=== PATIENT | female | born 1990 | race African-American/Black ===

== ENCOUNTER 2016-12-30 09:02 | Emergency (ER) | payer SELFPAY ==
[~2016-12-30] VITALS: Ht 160 cm; Wt 77.1 kg
[~2016-12-30 09:02] MED LIST: CEPH-264 PO; CIPR500T94 PO; METR500T PO; METR500T8 PO; OXYC-323 PO; PNV1TABL25 PO
[2016-12-30 09:34] VITALS: BP 124/60
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
[2016-12-30 09:50] LABS: BILIRUBIN,URINE NEGATIVE (NEG); GLUCOSE,URINE NEGATIVE (NEG); NITRITE,URINE NEGATIVE (NEG); PROTEIN,URINE NEGATIVE (NEG-TRACE); UROBILINOGEN,URINE 0.2 mg/dL (0.2 mg/dL)
[2016-12-30 10:04] LABS: BACTERIA,URINE MANY /HPF (0-FEW); RBC,URINE RARE /HPF (0-2)
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
[2016-12-30] MEDS ORDERED: IBUP-1060 PO (10:56)
[2016-12-30] MEDS ORDERED: CYCL5TAB PO (10:56)
[2016-12-30] MEDS ORDERED: traMADol 50 MG TABLET PO ONE (11:00)
[2016-12-30] MEDS ORDERED: KETOROLAC 60 MG/2 ML INJ. IM ONE (11:15)
== END 2016-12-30 11:42 | disposition home or self-care (01) ==
LOC: ER 09:02
DX: S16.1XXA Strain of muscle, fascia and tendon at neck level, initial encounter (principal); S33.5XXA Sprain of ligaments of lumbar spine, initial encounter; R07.81 Pleurodynia; Y08.89XA Assault by other specified means, initial encounter; Y93.89 Activity, other specified; Y92.89 Other specified places as the place of occurrence of the external cause; Y99.8 Other external cause status
CPT/HCPCS: 70450; 71101; 72100; 72125; 81001; 81025; 96372; 99285; J1885

== ENCOUNTER 2017-01-03 23:18 | Emergency (ER) | payer SELFPAY ==
[~2017-01-03] VITALS: Ht 160 cm; Wt 68.0 kg
[~2017-01-03 23:18] MED LIST changes: +CYCL5TAB PO; +IBUP-1060 PO
--- NOTE | 2017-01-03 23:38 | PHYS DOC ---
Past Medical History Past Medical History: Other Additional Past Medical Histor: HEADACHES Past Surgical History: No Surgical History Alcohol Use: Heavy Drug Use: None Adult General Chief Complaint Chief Complaint: HEADACHE HPI HPI Patient is a 26 year old female who presents with complaints of anxiety as well as headache. Headache is described as similar to others that are not frequent. No other people who live with her we headaches. No fevers, no head trauma, no rashes, no recent illnesses. Patient states that she has not taking anything at all prior to coming to the ED for her headache. Patient does not describe any vomiting or focal weakness or numbness. She does state that she felt dizzy. Patient ambulates in the ED with normal gait and without assistance. Review of Systems Review of Systems Constitutional: Denies fever or chills [] Eyes: Denies change in visual acuity, redness, or eye pain [] HENT: Denies nasal congestion or sore throat [] Respiratory: Denies cough or shortness of breath [] Cardiovascular: No chest pain GI: Denies abdominal pain, Musculoskeletal: Denies back pain or joint pain [] Integument: Denies rash or skin lesions [] Neurologic: Denies focal weakness or sensory changes . Yes to headache, just the dizziness Current Medications Current Medications Current Medications Medications (Trade) Dose Ordered Sig/[facility] Start Time Stop Time Status Last Admin Dose Admin Acetaminophen (Tylenol) 1,000 mg 1X ONCE 01/04/17 00:00 01/04/17 00:01 DC 01/03/17 23:45 1,000 MG Diphenhydramine HCl (Benadryl) 25 mg 1X ONCE 01/04/17 01:00 01/04/17 01:01 01/04/17 00:42 25 MG Ketorolac Tromethamine (Toradol Im) 60 mg 1X ONCE 01/04/17 00:00 01/04/17 00:01 DC 01/03/17 23:45 60 MG Prochlorperazine Edisylate (Compazine) 10 mg 1X ONCE 01/04/17 01:00 01/04/17 01:01 01/04/17 00:42 10 MG Allergies Allergies Allergies Coded Allergies Type Severity Reaction Last Updated Verified No Known Drug Allergies 11/19/15 No Physical Exam Physical Exam Constitutional: Well developed, well nourished, mild distress, non-toxic appearance. [] HENT: Normocephalic, atraumatic, oropharynx moist, no oral exudates, nose normal. [] Eyes: EOMI, conjunctiva normal, no discharge. [] Neck: Normal range of motion, no tenderness, supple, no stridor. No LAD, no meningeal signs Cardiovascular:Heart rate regular rhythm, no murmur, equal pulses, normal perfusion Lungs & Thorax: No tachypnea Abdomen: No distention Skin: Warm, dry, no erythema, no rash. [] Back: No tenderness, no CVA tenderness. No step-offs Extremities: No tenderness, no cyanosis, , ROM intact, no edema. [] Neurologic: Alert and oriented X 3, normal motor function, strength is equal and symmetric throughout, no pronator drift, normal gross sensory function, no focal deficits noted. Cranial nerves III-12 within normal limits. Patient ambulates with normal gait and without assistance Psychologic: Affect normal, judgement normal, mood normal. [] Current Patient Data Vital Signs Vital Signs Date Time Temp Pulse Resp B/P (MAP) Pulse Ox O2 Delivery O2 Flow Rate FiO2 01/03/17 23:24 98.5 79 16 144/82 (102) 98 Room Air 98.5 Lab Values Laboratory Tests Test 01/03/17 23:28 POC Urine HCG, Qualitative Hcg negative (Negative) EKG EKG 2342 61, SR, no stemi[] Radiology/Procedures Radiology/Procedures [] Course & Med Decision Making Course & Med Decision Making Pertinent Labs and Imaging studies reviewed. (See chart for details) 0048 pt states she feels improved and wants to go home. [] Dragon Disclaimer Dragon Disclaimer This electronic medical record was generated, in whole or in part, using a voice recognition dictation system. Departure Departure Impression: Primary Impression: Head ache Disposition: HOME, SELF-CARE Condition: IMPROVED Referrals: NO PCP (PCP) Patient Instructions: General Headache Without Cause Additional Instructions: Please follow with your PCP or one of the clinics in the list provided to you for recheck and reevaluation in 1 day. If your symptoms return or new concerning symptoms (difficulty walking, vomiting, localized weakness are examples )develop please return to the ED immediately for further evaluation. Scripts Naproxen (NAPROXEN) 375 Mg Tablet 1 TAB PO TID for 7 Days, #21 TAB 5 Refills Prov: Francis NORRIS MD 01/04/17 Francis NORRIS MD Jan 03, 2017 23:38
[2017-01-04] MEDS ORDERED: KETOROLAC 60 MG/2 ML INJ. IM ONE
[2017-01-04] MEDS ORDERED: ACETAMINOPHEN 500 MG TABLET PO ONE
[2017-01-04] MEDS ORDERED: NAPR-695 PO (00:50)
[2017-01-04 01:00] VITALS: BP 125/85
[2017-01-04] MEDS ORDERED: PROCHLORPERAZINE 10 MG/2 ML VIAL. IV ONE (01:00)
[2017-01-04] MEDS ORDERED: diphenhydrAMINE 50 MG/ML VIAL IVP ONE (01:00)
--- NOTE | 2017-01-04 06:22 | EKG ---
[facility] [address] [place] [address] Test Date: 2017-01-03 Test Time: 23:36:11 Pat Name: BRYON HENLEY Department: Room: Gender: F [employer]ician: : 1990 Requested By: Francis NORRIS Order Number: [id number] Reading MD: Measurements Intervals [place] Rate: 61 P: 49 SC: 118 QRS: 73 QRSD: 78 T: 47 QT: 432 QTc: 436 Interpretive Statements SINUS RHYTHM NORMAL ECG RI6.01 Unconfirmed report No previous ECG available for comparison
== END 2017-01-04 01:00 | disposition home or self-care (01) ==
LOC: ER 23:18
DX: R51 Headache (principal); F41.9 Anxiety disorder, unspecified; F10.20 Alcohol dependence, uncomplicated
CPT/HCPCS: 81025; 93005; 96372; 96374; 96375; 99284; J0780; J1200; J1885

== ENCOUNTER 2017-03-03 14:15 | Emergency (ER) | payer SELFPAY ==
[~2017-03-03] VITALS: Ht 160 cm; Wt 72.6 kg
[~2017-03-03 14:15] MED LIST changes: +NAPR-695 PO
[2017-03-03 14:17] VITALS: BP 124/56
[2017-03-03] MEDS ORDERED: IV NORMAL SALINE 1000ML BAG 1,000 ML IV SCH (15:37)
--- NOTE | 2017-03-03 16:33 | RAD ---
Early OB ultrasound History: , vaginal bleeding, LMP 01/06/2017 Comparison: OB ultrasound dated 11/17/2015 Technique: Realtime grayscale and duplex Doppler examination of the pelvis was performed transabdominally and transvaginally. Findings: The uterus measures 8 x 5 x 5 cm. The endometrial stripe measures 0.8 cm. No IUP detected. No gestational sac or yolk sac seen. Small amount of complex fluid seen in the lower uterine segment. No increased blood flow by color Doppler ultrasound. The right ovary measures 3.1 x 1.5 x 1.3 cm with several physiologic follicles. The left ovary measures 2.9 x 1.8 x 1.4 cm also with several physiologic follicles. Normal bilateral ovarian vascular flow. Impression: 1. No IUP identified. Recommend correlation with serial lab values and obstetrics consultation. Short-term follow-up sonography can be obtained. 2. Small amount of complex fluid seen in the lower uterine segment may relate to blood products given the history of vaginal bleeding. Findings also could relate to retained products of conception. No increased blood flow seen by color Doppler ultrasound. Again, short-term follow-up ultrasound could be performed.
[2017-03-03 17:20] LABS: BACTERIA,URINE MANY /HPF (0-FEW); BILIRUBIN,URINE NEGATIVE (NEG); GLUCOSE,URINE NEGATIVE (NEG); NITRITE,URINE NEGATIVE (NEG); PROTEIN,URINE NEGATIVE (NEG-TRACE); RBC,URINE 0 /HPF (0-2); SQUAMOUS EPITHELIAL CELL,UR MOD /LPF; WBC,URINE >40 /HPF (0-4)
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
== END 2017-03-03 16:24 | disposition left against medical advice (07) ==
LOC: ER 14:15
DX: O46.91 Antepartum hemorrhage, unspecified, first trimester (principal); Z3A.00 Weeks of gestation of pregnancy not specified; Z53.21 Procedure and treatment not carried out due to patient leaving prior to being seen by health care provider
CPT/HCPCS: 76801; 76817; 81001; 81025; 87086; 87186; 99281; 99285-25

== ENCOUNTER 2017-03-05 14:10 | Emergency (ER) | payer SELFPAY ==
[~2017-03-05] VITALS: Ht 160 cm; Wt 71.4 kg
[2017-03-05] MEDS ORDERED: fentaNYL PF VIAL 100 MCG/2 ML VIAL IV PRN (15:30)
[2017-03-05] MEDS ORDERED: IV NORMAL SALINE 1000ML BAG 1,000 ML IV ONE (15:30)
[2017-03-05] MEDS ORDERED: ONDANSETRON PF 4 MG/2 ML VIAL. IV ONE (15:30)
[2017-03-05 15:38] LABS: BILIRUBIN,URINE NEGATIVE (NEG); GLUCOSE,URINE NEGATIVE (NEG); NITRITE,URINE POSITIVE (NEG); PROTEIN,URINE NEGATIVE (NEG-TRACE)
[2017-03-05 15:48] LABS: BACTERIA,URINE MANY /HPF (0-FEW); SQUAMOUS EPITHELIAL CELL,UR MOD /LPF
[2017-03-05 15:58] LABS: BASO % 1 % (0-3); EOS % 7 % (0-3); HEMATOCRIT 40.6 % (36.0-47.0); HEMOGLOBIN 13.3 g/dL (12.0-15.5); LYMPH # 1.9 x10^3/uL (1.0-4.8); LYMPH % 33 % (24-48); MEAN CORPUSCULAR HEMOGLOBIN 30 pg (25-35); MEAN CORPUSCULAR HGB CONC 33 g/dL (31-37); MEAN CORPUSCULAR VOLUME 91 fL (79-100); MONO % 8 % (0-9); NEUT % 52 % (31-73); PLATELET COUNT 262 x10^3/uL (140-400); RED BLOOD COUNT 4.49 x10^6/uL (3.50-5.40); RED CELL DISTRIBUTION WIDTH 13.9 % (11.5-14.5); WHITE BLOOD COUNT 5.8 x10^3/uL (4.0-11.0)
--- NOTE | 2017-03-05 16:10 | ED.ADGEN ---
Past Medical History Past Medical History: Ectopic , Other Additional Past Medical Histor: HEADACHES Past Surgical History: No Surgical History Additional Information: 0.25 PPD Alcohol Use: Heavy Drug Use: None Adult General Chief Complaint Chief Complaint: VAGINAL BLEEDING HPI HPI Patient is a 27 year old woman, , history of an ectopic , with a positive test and her last menstrual cycle about 10 weeks ago, who presents emergency department with complaint of vaginal bleeding for the past 5 days. Patient states she is passing some clots, states that she is using about 6 pads a day, though not soaking through them. She states that she isn't having bleeding for the past 5 days with cramping for the past 3. States some lower back pain, no nausea, vomiting, no injuries, no discharge or drainage from the vagina, no urinary complaints, no concerns for STI exposures. She denies other medical problems. She does smoke cigarettes daily, denies any drugs or alcohol. Patient presents to the emergency department on 03/03, did have an ultrasound performed, left without being evaluated. States she is currently having cramping. Denies any injuries, any similar complaints. Review of Systems Review of Systems Constitutional: Denies fever or chills. [] Eyes: Denies change in visual acuity. [] HENT: Denies nasal congestion or sore throat. [] Respiratory: Denies cough or shortness of breath. [] Cardiovascular: Denies chest pain or edema. [] GI: Lower abdominal cramping, no nausea, vomiting, bloody stools or diarrhea. Associated with vaginal bleeding. : Denies dysuria. [] Musculoskeletal: Denies back pain or joint pain. [] Integument: Denies rash. [] Neurologic: Denies headache, focal weakness or sensory changes. [] Endocrine: Denies polyuria or polydipsia. [] Lymphatic: Denies swollen glands. [] Psychiatric: Denies depression or anxiety. [] Current Medications Current Medications Current Medications Medications (Trade) Dose Ordered Sig/Mckayla Start Time Stop Time Status Last Admin Dose Admin Acetaminophen/ Hydrocodone Bitart (Lortab 5/325) 1 tab 1X ONCE 03/05/17 16:45 03/05/17 16:46 DC 03/05/17 17:03 1 TAB Cephalexin HCl (Keflex) 500 mg 1X ONCE 03/05/17 16:45 03/05/17 16:46 DC 03/05/17 17:02 500 MG Fentanyl Citrate (Fentanyl 2ml Vial) 25 mcg PRN Q15MIN PRN 03/05/17 15:30 03/05/17 17:11 DC 03/05/17 16:06 25 MCG Metronidazole (Flagyl) 500 mg 1X ONCE 03/05/17 16:45 03/05/17 16:46 DC 03/05/17 17:02 500 MG Ondansetron HCl (Zofran) 4 mg 1X ONCE 03/05/17 15:30 03/05/17 15:32 DC 03/05/17 16:05 4 MG Sodium Chloride 1,000 ml @ 1,000 mls/hr 1X ONCE 03/05/17 15:30 03/05/17 16:29 DC 03/05/17 16:05 1,000 MLS/HR Allergies Allergies Allergies Coded Allergies Type Severity Reaction Last Updated Verified No Known Drug Allergies 11/19/15 No Physical Exam Physical Exam Constitutional: Well developed, well nourished, no acute distress, non-toxic appearance. [] HENT: Normocephalic, atraumatic, bilateral external ears normal, oropharynx moist, no oral exudates, nose normal. [] Eyes: PERRLA, EOMI, conjunctiva normal, no discharge. [] Neck: Normal range of motion, no tenderness, supple, no stridor. [] Cardiovascular:Heart rate regular rhythm, no murmur, S1, S2, no rubs or gallops. [] Lungs & Thorax: Bilateral breath sounds clear to auscultation, no wheezing, rhonchi, rales. No chest wall crepitus or tenderness. [] Abdomen: Bowel sounds normal, soft, mild tenderness to palpation in the suprapubic and pelvic region, no masses, no pulsatile masses. [] Skin: Warm, dry, no erythema, no rash. [] Back: No tenderness, no CVA tenderness. [] Extremities: No tenderness, no cyanosis, no clubbing, ROM intact, no edema. Negative Homans sign.[] Neurologic: Alert and oriented X 3, normal motor function, normal sensory function, no focal deficits noted. [] Psychologic: Affect normal, judgement normal, mood normal. [] Pelvic examination: Normal-appearing external examination was small of blood noted at the introitus, bimanual examination reveals a fingertip os, external, internal is closed, blood noted on glove. No CMT, mild tenderness throughout, no adnexal masses or tenderness noted. Speculum examination obtained without issue, reveals small amount of dark red blood in full, no active bleeding, cervix is normal in appearance. Current Patient Data Vital Signs Vital Signs Date Time Temp Pulse Resp B/P (MAP) Pulse Ox O2 Delivery O2 Flow Rate FiO2 03/05/17 17:03 16 98 Room Air 03/05/17 16:30 69 96/64 (75) 03/05/17 15:01 99.0 99.0 Lab Values Laboratory Tests Test 03/05/17 15:01 03/05/17 15:11 03/05/17 15:50 Urine Collection Type Void Urine Color Yellow Urine Clarity Clear Urine pH 6.0 Urine Specific [place] >=1.030 Urine Protein Negative mg/dL (NEG-TRACE) Urine Glucose (UA) Negative mg/dL (NEG) Urine Ketones (Stick) Negative mg/dL (NEG) Urine Blood Large (NEG) Urine Nitrite Positive (NEG) Urine Bilirubin Negative (NEG) Urine Urobilinogen Dipstick 1.0 mg/dL (0.2 mg/dL) Urine Leukocyte Esterase Small (NEG) Urine RBC 1-2 /HPF (0-2) Urine WBC 5-10 /HPF (0-4) Urine Squamous Epithelial Cells Mod /LPF Urine Bacteria Many /HPF (0-FEW) Urine Mucus Marked /LPF POC Urine HCG, Qualitative Hcg positive (Negative) White Blood Count 5.8 x10^3/uL (4.0-11.0) Red Blood Count 4.49 x10^6/uL (3.50-5.40) Hemoglobin 13.3 g/dL (12.0-15.5) Hematocrit 40.6 % (36.0-47.0) Mean Corpuscular Volume 91 fL (79-100) Mean Corpuscular Hemoglobin 30 pg (25-35) Mean Corpuscular Hemoglobin Concent 33 g/dL (31-37) Red Cell Distribution Width 13.9 % (11.5-14.5) Platelet Count 262 x10^3/uL (140-400) Neutrophils (%) (Auto) 52 % (31-73) Lymphocytes (%) (Auto) 33 % (24-48) Monocytes (%) (Auto) 8 % (0-9) Eosinophils (%) (Auto) 7 % (0-3) H Basophils (%) (Auto) 1 % (0-3) Neutrophils # (Auto) 3.0 x10^3uL (1.8-7.7) Lymphocytes # (Auto) 1.9 x10^3/uL (1.0-4.8) Monocytes # (Auto) 0.5 x10^3/uL (0.0-1.1) Eosinophils # (Auto) 0.4 x10^3/uL (0.0-0.7) Basophils # (Auto) 0.0 x10^3/uL (0.0-0.2) Maternal Serum HCG Beta Subunit 69 mIU/mL (0-5) H Sodium Level 144 mmol/L (136-145) Potassium Level 3.9 mmol/L (3.5-5.1) Chloride Level 106 mmol/L (98-107) Carbon Dioxide Level 28 mmol/L (21-32) Anion Gap 10 (6-14) Blood Urea Nitrogen 11 mg/dL (7-20) Creatinine 0.7 mg/dL (0.6-1.0) Estimated GFR (Cockcroft-Gault) 123.4 BUN/Creatinine Ratio 16 (6-20) Glucose Level 93 mg/dL (70-99) Calcium Level 9.3 mg/dL (8.5-10.1) Total Bilirubin 0.2 mg/dL (0.2-1.0) Aspartate Amino Transferase (AST) 16 U/L (15-37) Alanine Aminotransferase (ALT) 24 U/L (14-59) Alkaline Phosphatase 58 U/L (46-116) Total Protein 7.5 g/dL (6.4-8.2) Albumin 4.2 g/dL (3.4-5.0) Albumin/Globulin Ratio 1.3 (1.0-1.7) Laboratory Tests 03/05/17 15:50 Laboratory Tests 03/05/17 15:50 Microbiology 03/05/17 Wet Prep - Final, Complete EKG EKG Not indicated.[] Radiology/Procedures Radiology/Procedures [][facility] [address] [place] [address] IMAGING REPORT Signed PATIENT: BRYON HENLEY ACCOUNT: [id number] : 1990 LOCATION: ER AGE: 27 SEX: F EXAM STATUS: DEP ER ORD. PHYSICIAN: OSCAR MAYEN DO REASON: Preg vag bleeding PROCEDURE: OB <14 WKS W/TV Early OB ultrasound History: , vaginal bleeding, LMP 01/06/2017 Comparison: OB ultrasound dated 11/17/2015 Technique: Realtime grayscale and duplex Doppler examination of the pelvis was performed transabdominally and transvaginally. Findings: The uterus measures 8 x 5 x 5 cm. The endometrial stripe measures 0.8 cm. No IUP detected. No gestational sac or yolk sac seen. Small amount of complex fluid seen in the lower uterine segment. No increased blood flow by color Doppler ultrasound. The right ovary measures 3.1 x 1.5 x 1.3 cm with several physiologic follicles. The left ovary measures 2.9 x 1.8 x 1.4 cm also with several physiologic follicles. Normal bilateral ovarian vascular flow. Impression: 1. No IUP identified. Recommend correlation with serial lab values and obstetrics consultation. Short-term follow-up sonography can be obtained. 2. Small amount of complex fluid seen in the lower uterine segment may relate to blood products given the history of vaginal bleeding. Findings also could relate to retained products of conception. No increased blood flow seen by color Doppler ultrasound. Again, short-term follow-up ultrasound could be performed. DICTATED and SIGNED BY: LAVERN KRISHNAMURTHY MD DATE: 03/03/17 1620 CC: OSCAR MAYEN DO; NO PCP ~ Impressions: [facility] [address] [place] [address] IMAGING REPORT Signed PATIENT: BRYON HENLEY ACCOUNT: [id number] : 1990 LOCATION: ER AGE: 27 SEX: F EXAM STATUS: REG ER ORD. PHYSICIAN: OSCAR MAYEN DO REASON: + preg test/vag bleeding PROCEDURE: OB <14 WKS W/TV Obstetrical ultrasound, 03/05/2017: History: Vaginal bleeding Transabdominal and transvaginal scans were obtained. The transabdominal scans are of limited value due to lack of bladder distention. No intrauterine gestational sac is seen. The central uterine echo complex is of normal thickness measuring 3-4 mm. The ovaries are of normal size. They contain tiny follicular cysts. Blood flow is present in the ovaries. No adnexal mass is seen. No free fluid is evident in the pelvis. IMPRESSION: Normal pelvic ultrasound, with no intrauterine or extra uterine gestational sac identified. Correlation with hCG titers and possibly sonographic follow-up is suggested. DICTATED and SIGNED BY: CARISSA ALFARO MD DATE: 03/05/17 1607 CC: OSCAR MAYEN DO; NO PCP ~ Course & Med Decision Making Course & Med Decision Making Pertinent Labs and Imaging studies reviewed. (See chart for details) Patient well-appearing with vital signs within normal limits, is agreeable to receiving laboratory studies and imaging to further elucidate her symptoms, she had a positive test yesterday. Beta quantitative assay is 69, hemoglobin is 13.3, examination reveals no active bleeding, evidence of dark blood in vault. Repeat ultrasound obtained to further elucidate findings as was recommended by initial ultrasound, and reveals a normal-appearing examination without evidence of retained products or other concerning findings. Patient with a nitrate positive urinary tract infection, also noted to have clue cells on wet prep consistent with bacterial vaginosis. Patient is complaining of pain , which is improved to receiving analgesia in the ED. I did discuss findings as above and evaluation with Dr. Machado of [facility], with the patient has seen previously during her last , he requests the patient be discharged from the emergency Department with instructions to follow-up in his office on Wednesday at 10 AM, patient did receive her first dose of Keflex in the medical in the ED, also be discharged with hydrocodone and naproxen. I did discuss this with the patient, she is resting comfortably receiving analgesia in the ED, is agreeable with this finding, states she'll be able to follow-up as discussed. We discussed concerning symptoms that would prompt return to the ED, and proper demonstration of medication, patient did tolerate first dose medication in the ED without issue. Patient discharged home in stable condition with plan as above. Dragon Disclaimer Dragon Disclaimer This electronic medical record was generated, in whole or in part, using a voice recognition dictation system. Departure Impression: Primary Impression: Bacterial vaginosis Additional Impressions: UTI (urinary tract infection) Spontaneous Disposition: 01 HOME, SELF-CARE Condition: IMPROVED Scripts Naproxen (NAPROSYN) 500 Mg Tablet 500 MG PO BID, #10 TAB Prov: OSCAR MAYEN DO 03/05/17 Hydrocodone Bit/Acetaminophen (HYDROCODONE-APAP 5-325 ) 1 Each Tablet 1 TAB PO PRN Q6HRS Y for PAIN, #12 TAB 0 Refills Prov: OSCAR MAYEN DO 03/05/17 Metronidazole (METRONIDAZOLE) 500 Mg Tablet 1 TAB PO BID, #14 TAB Prov: OSCAR MAYEN DO 03/05/17 Cephalexin (KEFLEX) 500 Mg Capsule 500 MG PO BID, #14 CAP Prov: OSCAR MAYEN DO 03/05/17 Problem Qualifiers OSCAR MAYEN DO Mar 05, 2017 16:10
[2017-03-05 16:11] LABS: CALCIUM 9.3 mg/dL (8.5-10.1); CREATININE 0.7 mg/dL (0.6-1.0); GFR 123.4; POTASSIUM 3.9 mmol/L (3.5-5.1)
[2017-03-05 16:18] LABS: ALBUMIN 4.2 g/dL (3.4-5.0); ALBUMIN/GLOBULIN RATIO 1.3 (1.0-1.7); TOTAL BILIRUBIN 0.2 mg/dL (0.2-1.0); TOTAL PROTEIN 7.5 g/dL (6.4-8.2)
[2017-03-05 16:30] VITALS: BP 96/64
[2017-03-05] MEDS ORDERED: CEPH-264 PO (16:45)
[2017-03-05] MEDS ORDERED: metroNIDAZOLE 500 MG TABLET PO ONE (16:45)
[2017-03-05] MEDS ORDERED: HYDROcodone/APAP 5/325MG 1 TAB TABLET PO ONE (16:45)
[2017-03-05] MEDS ORDERED: HYDR-2758 PO (16:45)
[2017-03-05] MEDS ORDERED: METR500T8 PO (16:45)
[2017-03-05] MEDS ORDERED: CEPHALEXIN 250 MG CAPSULE. PO ONE (16:45)
[2017-03-05] MEDS ORDERED: NAPR-683 PO (16:45)
== END 2017-03-05 17:05 | disposition home or self-care (01) ==
LOC: ER 14:10
DX: O03.9 Complete or unspecified spontaneous abortion without complication (principal); N39.0 Urinary tract infection, site not specified; N76.0 Acute vaginitis; B96.89 Other specified bacterial agents as the cause of diseases classified elsewhere; F17.210 Nicotine dependence, cigarettes, uncomplicated; F10.20 Alcohol dependence, uncomplicated
CPT/HCPCS: 36415; 76801; 76817; 80053; 81001; 81025; 84702; 85025; 87086; 87186; 87491; 87591; 96361; 96374; 96375; 99285; J2405; J3010; J7030; Q0111

== ENCOUNTER 2017-04-01 18:14 | Emergency (ER) | payer SELFPAY ==
[2017-04-01 18:33] LABS: URINE HCG POC HCG NEGATIVE (Negative)
[2017-04-01 18:46] LABS: BILIRUBIN,URINE NEGATIVE (NEG); GLUCOSE,URINE NEGATIVE (NEG); NITRITE,URINE NEGATIVE (NEG); PROTEIN,URINE NEGATIVE (NEG-TRACE); UROBILINOGEN,URINE 0.2 mg/dL (0.2 mg/dL)
[2017-04-01 19:19] LABS: BACTERIA,URINE 0 /HPF (0-FEW); SQUAMOUS EPITHELIAL CELL,UR OCC /LPF
== END 2017-04-01 18:52 | disposition left against medical advice (07) ==
LOC: ER 18:14
DX: N93.9 Abnormal uterine and vaginal bleeding, unspecified (principal); Z87.440 Personal history of urinary (tract) infections
CPT/HCPCS: 81001; 81025; 87086; 87186; 99284

== ENCOUNTER 2017-06-05 23:57 | Emergency (ER) | payer SELFPAY | END 2017-06-06 00:32 | disposition home or self-care (01) | LOC: ER 23:57 | DX: S61.251A Open bite of left index finger without damage to nail, initial encounter (principal); S61.252A Open bite of right middle finger without damage to nail, initial encounter; W54.0XXA Bitten by dog, initial encounter; Y93.89 Activity, other specified; Y92.89 Other specified places as the place of occurrence of the external cause; Y99.8 Other external cause status | CPT/HCPCS: 73130; 99284 ==

== ENCOUNTER 2019-01-07 12:16 | Inpatient (IN) | payer SELFPAY ==
[2019-01-07] VITALS (10 sets, daily range): BP systolic 81–122; BP diastolic 55–88
[~2019-01-07] VITALS: Ht 160 cm; Wt 74.0 kg
[~2019-01-07 12:16] MED LIST changes: +AMOX1TAB61 PO; +HYDR-2761 PO; +METR-34 PO; -METR500T8 PO; +NAPR-683 PO; -OXYC-323 PO; +OXYC1TAB15 PO; +TRAM50TA PO
[2019-01-07] MEDS ORDERED: IV NORMAL SALINE 1000ML BAG 1,000 ML IV SCH ×2 (12:21→15:10)
[2019-01-07] MEDS ORDERED: IV NORMAL SALINE 1000ML BAG 1,000 ML IV ONE ×2 (13:15→20:00)
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
[2019-01-07 13:23] LABS: BILIRUBIN,URINE NEGATIVE (NEG); CLARITY,URINE CLEAR; COLOR,URINE YELLOW; NITRITE,URINE NEGATIVE (NEG); PH,URINE 5.5; PROTEIN,URINE 100 mg/dL (NEG-TRACE); UROBILINOGEN,URINE 0.2 mg/dL (0.2 mg/dL)
[2019-01-07 13:26] LABS: AMPHETAMINE/METHAMPHETAMINE POS (NEG); BARBITURATES NEG (NEG); BENZODIAZEPINES NEG (NEG); CANNABINOIDS NEG (NEG); COCAINE POS (NEG); METHADONE NEG (NEG); OPIATES POS (NEG); PHENCYCLIDINE NEG (NEG)
[2019-01-07 13:34] LABS: BACTERIA,URINE FEW /HPF (0-FEW); RBC,URINE 0 /HPF (0-2); SQUAMOUS EPITHELIAL CELL,UR MANY /LPF; WBC,URINE OCC /HPF (0-4)
--- NOTE | 2019-01-07 13:54 | RAD ---
Indication: Right hip pain TECHNIQUE: AP pelvis and 2 views of the right hip joint COMPARISON: None Findings/ impression: No acute fracture or dislocation. No arthritic changes. INDICATION: Low back pain TECHNIQUE: Multiple views of the lumbar spine COMPARISON: None FINDINGS/impression: Lumbar spine demonstrates straightening. This could be due to muscle spasm or positioning. There are 5 lumbar type vertebral bodies. No compression deformities. No imaging evidence of degenerative disc disease. INDICATION: Loss of consciousness TECHNIQUE: Single AP view of the chest COMPARISON: None FINDINGS: Heart is normal in size. Lungs are clear. No pneumothorax or pleural effusion. Visualized bony thorax within normal limits. IMPRESSION: No acute pulmonary process. Electronically signed by: Tuan Cam DO (01/07/2019 1:51 PM) [id number]
[2019-01-07 14:52] LABS: BASO % 0 % (0-3); EOS % 0 % (0-3); HEMATOCRIT 41.1 % (36.0-47.0); HEMOGLOBIN 13.5 g/dL (12.0-15.5); LYMPH # 0.9 x10^3/uL (1.0-4.8); LYMPH % 5 % (24-48); MEAN CORPUSCULAR HEMOGLOBIN 30 pg (25-35); MEAN CORPUSCULAR HGB CONC 33 g/dL (31-37); MEAN CORPUSCULAR VOLUME 92 fL (79-100); MONO # 1.3 x10^3/uL (0.0-1.1); MONO % 7 % (0-9); NEUT # 17.5 x10^3/uL (1.8-7.7); NEUT % 88 % (31-73); PLATELET COUNT 247 x10^3/uL (140-400); RED BLOOD COUNT 4.46 x10^6/uL (3.50-5.40); RED CELL DISTRIBUTION WIDTH 14.1 % (11.5-14.5); WHITE BLOOD COUNT 19.8 x10^3/uL (4.0-11.0)
[2019-01-07 15:01] LABS: CALCIUM 8.8 mg/dL (8.5-10.1); GFR 81.1; POTASSIUM 4.3 mmol/L (3.5-5.1); PROTHROMBIN TIME PATIENT 12.9 SEC (11.7-14.0)
[2019-01-07 15:06] LABS: ACETAMIN < 2.0 mcg/ml (10-30); ETHANOL < 10 mg/dL (0-10); SALIC 3.7 mg/dL (2.8-20.0)
[2019-01-07 15:07] LABS: DIRECT BILIRUBIN 0.1 mg/dL (0.0-0.2); MAGNESIUM 2.1 mg/dL (1.8-2.4); TOTAL BILIRUBIN 0.1 mg/dL (0.2-1.0); TOTAL PROTEIN 7.5 g/dL (6.4-8.2)
[2019-01-07] MEDS ORDERED: TETRACAINE 0.5% OPHTH SOLUTION 4ML BOTTLE. ONE (15:09)
[2019-01-07] MEDS ORDERED: TETRACAINE 0.5% OPHTH SOLUTION 4ML BOTTLE. OS ONE (15:15)
[2019-01-07 15:20] LABS: % BANDS 10 % (0-9); % LYMPHS 7 % (24-48); % MONOS 4 % (0-10); % SEGS 79 % (35-66); PLT ESTIMATE ADEQUATE (ADEQUATE)
--- NOTE | 2019-01-07 16:46 | PDOC1 ---
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 , OVERDOSED ON COCAINE, ESTACY, SEEN IN ER WITH TACHYCARDIA, CONFUSION, FALL Past Medical History Past Medical History Past Medical History Past Medical History Past Medical History: Ectopic , Other Additional Past Medical Histor: HEADACHES, 01/21 [employer] HISTORIAN Past Surgical History: No Surgical History Drug Use: cocaine, estacy Past Medical History Past Medical History: Ectopic , Other Additional Past Medical Histor: HEADACHES Past Surgical History: No Surgical History Additional Information: 0.25 PPD Alcohol Use: Heavy Drug Use: COCAINE Psych: Addictions Family History Family History: High Cholestrol, Hypertension Social History Smoke: <1 pack per day ALCOHOL: occassional Drugs: Cocaine, Marijuana Current Problem List Problem List Problems Medical Problems: (1) Cocaine abuse Status: Acute (2) Methamphetamine abuse Status: Acute (3) Opiate overdose Status: Acute (4) Tachycardia Status: Acute (5) Unresponsive episode Status: Acute Current Medications Current Medications Current Medications Sodium Chloride 1,000 ml @ 1,000 mls/hr Q1H IV Last administered on 01/07/19at 12:57; Start 01/07/19 at 12:21; Stop 01/07/19 at 13:20; Status DC Sodium Chloride 1,000 ml @ 1,000 mls/hr 1X ONCE IV Last administered on 01/07/19at 13:15; Start 01/07/19 at 13:15; Stop 01/07/19 at 14:14; Status DC Lorazepam (Ativan Inj) 1 mg 1X ONCE IVP Last administered on 01/07/19at 15:42; Start 01/07/19 at 14:30; Stop 01/07/19 at 14:31; Status DC Tetracaine HCl (Tetracaine) 1 drop 1X ONCE OS Last administered on 01/07/19at 15:15; Start 01/07/19 at 15:15; Stop 01/07/19 at 15:16; Status DC Tetracaine HCl (Tetracaine) 40 drop STK-MED ONCE .ROUTE ; Start 01/07/19 at 15:09; Stop 01/07/19 at 15:10; Status DC Sodium Chloride 1,000 ml @ 150 mls/hr Q6H40M IV ; Start 01/07/19 at 15:10; Stop 01/08/19 at 15:09 Dextrose 1,000 ml @ 100 mls/hr Q10H IV ; Start 01/07/19 at 16:00 Active Scripts Active Naprosyn (Naproxen) 500 Mg Tablet 500 Mg PO BID Tramadol Hcl 50 Mg Tablet 1 Tab PO PRN Q6HRS Augmentin 875-125 Tablet (Amoxicillin/Potassium Clav) 1 Each Tablet 1 Tab PO BID Hydrocodone-Apap 5-325 (Hydrocodone Bit/Acetaminophen) 1 Each Tablet 1 Tab PO PRN Q6HRS PRN Metronidazole 500 Mg Tablet 1 Tab PO BID Keflex (Cephalexin) 500 Mg Capsule 500 Mg PO BID Naproxen 375 Mg Tablet 1 Tab PO TID 7 Days Cyclobenzaprine Hcl 5 Mg Tablet 1 Tab PO TID Ibuprofen 800 Mg Tablet 800 Mg PO PRN Q6HRS PRN Flagyl (Metronidazole) 500 Mg Tablet 1 Tab PO BID Cipro (Ciprofloxacin Hcl) 500 Mg Tablet 1 Tab PO BID Keflex (Cephalexin) 500 Mg Capsule 1 Cap PO BID Metronidazole 500 Mg Tablet 1 Tab PO BID Percocet 5-325 Mg Tablet (Oxycodone/Acetaminophen) 1 Each Tablet 1-2 Tab PO Q4-6HRS PRN Caution with use of this medication as it may cause drowsiness. Reported Tablet (Pnv Cmb#95/Ferrous Fumarate/Fa) 1 Each Tablet 1 Tab PO DAILY Allergies Allergies: Coded Allergies: No Known Drug Allergies (Unverified , 11/19/15) ROS Review of System Review of Systems Review of Systems Constitutional: Denies fever or chills [] Eyes: Denies change in visual acuity, redness, or eye pain [] HENT: Denies nasal congestion or sore throat [] Respiratory: Denies cough or shortness of breath [] Cardiovascular: No additional information not addressed in HPI [] GI: Denies abdominal pain, nausea, vomiting, bloody stools or diarrhea [] : Denies dysuria or hematuria [] Musculoskeletal: Denies back pain or joint pain [] Integument: Denies rash or skin lesions [] Neurologic: Denies headache, focal weakness or sensory changes [] Endocrine: Denies polyuria or polydipsia [] 14 PT systems were reviewed and found to be within normal limits, except as documented General: YES: Fatigue PSYCHOLOGICAL ROS: YES: Anxiety, Concentration difficultie, Disorientation, Irritablity Eyes: Yes Blurry vision Hematological and Lymphatic: No: Bleeding Problems, Blood Clots, Blood Transfusions, Brusing, Night Sweats, Pallor, Swollen Lymph Nodes, Other Gastrointestinal: Yes Nausea Neurological: Yes Confusion Physical Exam Physical Exam Physical Exam Physical Exam Constitutional: Well developed, well nourished, MOD acute distress, MILD -toxic appearance. [] HENT: Normocephalic, atraumatic, bilateral external ears normal, oropharynx moist, no oral exudates, nose normal. [] Eyes: PERRLA, EOMI, conjunctiva normal, no discharge. [] Neck: Normal range of motion, no tenderness, supple, no stridor. [] Cardiovascular: TACHY Heart rate regular rhythm, no murmur [] Lungs & Thorax: Bilateral breath sounds clear to auscultation [] Abdomen: Bowel sounds normal, soft, no tenderness, no masses, no pulsatile masses. [] Skin: Warm, dry, no erythema, no rash. [] Back: No tenderness, no CVA tenderness. [] Extremities: No tenderness, no cyanosis, no clubbing, ROM intact, no edema. [] Neurologic: Alert and oriented X 3, normal motor function, normal sensory function, no focal deficits noted. [] Psychologic: Affect normal, judgment POOR , mood normal. [] General: Alert, Oriented X3, Cooperative, mild distress HEENT: Atraumatic, EOMI, Mucous membr. moist/pink Lungs: Normal air movement Heart: RRR, no thrills Breasts: Not examined Abdomen: Normal bowel sounds, Soft Rectal Exam: not examined PELVIC: Examination not indicated Extremities: No cyanosis Skin: No breakdown Neuro: Normal speech, Normal tone, Sensation intact, Cranial nerves 3-12 NL Vitals Vitals Vital Signs Date Time Temp Pulse Resp B/P (MAP) Pulse Ox O2 Delivery O2 Flow Rate FiO2 01/07/19 15:30 146 16 95/56 (69) 100 Room Air 01/07/19 14:00 2.0 Labs Labs Laboratory Tests Test 01/07/19 13:06 01/07/19 13:12 01/07/19 14:40 01/07/19 15:51 Urine Color Yellow Urine Clarity Clear Urine pH 5.5 Urine Specific [place] 1.025 Urine Protein 100 mg/dL (NEG-TRACE) Urine Glucose (UA) 100 mg/dL (NEG) Urine Ketones (Stick) Negative mg/dL (NEG) Urine Blood Small (NEG) Urine Nitrite Negative (NEG) Urine Bilirubin Negative (NEG) Urine Urobilinogen Dipstick 0.2 mg/dL (0.2 mg/dL) Urine Leukocyte Esterase Trace (NEG) Urine RBC 0 /HPF (0-2) Urine WBC Occ /HPF (0-4) Urine Squamous Epithelial Cells Many /LPF Urine Bacteria Few /HPF (0-FEW) Urine Opiates Screen Pos (NEG) Urine Methadone Screen Neg (NEG) Urine Barbiturates Neg (NEG) Urine Phencyclidine Screen Neg (NEG) Urine Amphetamine/Methamphetamine Pos (NEG) Urine Benzodiazepines Screen Neg (NEG) Urine Cocaine Screen Pos (NEG) Urine Cannabinoids Screen Neg (NEG) Urine Ethyl Alcohol Neg (NEG) Bedside Urine HCG, Qualitative Hcg negative (Negative) White Blood Count 19.8 x10^3/uL (4.0-11.0) Red Blood Count 4.46 x10^6/uL (3.50-5.40) Hemoglobin 13.5 g/dL (12.0-15.5) Hematocrit 41.1 % (36.0-47.0) Mean Corpuscular Volume 92 fL (79-100) Mean Corpuscular Hemoglobin 30 pg (25-35) Mean Corpuscular Hemoglobin Concent 33 g/dL (31-37) Red Cell Distribution Width 14.1 % (11.5-14.5) Platelet Count 247 x10^3/uL (140-400) Neutrophils (%) (Auto) 88 % (31-73) Lymphocytes (%) (Auto) 5 % (24-48) Monocytes (%) (Auto) 7 % (0-9) Eosinophils (%) (Auto) 0 % (0-3) Basophils (%) (Auto) 0 % (0-3) Neutrophils # (Auto) 17.5 x10^3/uL (1.8-7.7) Lymphocytes # (Auto) 0.9 x10^3/uL (1.0-4.8) Monocytes # (Auto) 1.3 x10^3/uL (0.0-1.1) Eosinophils # (Auto) 0.0 x10^3/uL (0.0-0.7) Basophils # (Auto) 0.0 x10^3/uL (0.0-0.2) Segmented Neutrophils % 79 % (35-66) Band Neutrophils % 10 % (0-9) Lymphocytes % 7 % (24-48) Monocytes % 4 % (0-10) Platelet Estimate Adequate (ADEQUATE) Prothrombin Time 12.9 SEC (11.7-14.0) Prothromb Time International Ratio 1.0 (0.8-1.1) Sodium Level 143 mmol/L (136-145) Potassium Level 4.3 mmol/L (3.5-5.1) Chloride Level 106 mmol/L (98-107) Carbon Dioxide Level 25 mmol/L (21-32) Anion Gap 12 (6-14) Blood Urea Nitrogen 16 mg/dL (7-20) Creatinine 1.0 mg/dL (0.6-1.0) Estimated GFR (Cockcroft-Gault) 81.1 Glucose Level 68 mg/dL (70-99) Calcium Level 8.8 mg/dL (8.5-10.1) Magnesium Level 2.1 mg/dL (1.8-2.4) Total Bilirubin 0.1 mg/dL (0.2-1.0) Direct Bilirubin 0.1 mg/dL (0.0-0.2) Aspartate Amino Transf (AST/SGOT) 51 U/L (15-37) Alanine Aminotransferase (ALT/SGPT) 37 U/L (14-59) Alkaline Phosphatase 61 U/L (46-116) Total Protein 7.5 g/dL (6.4-8.2) Albumin 4.0 g/dL (3.4-5.0) Salicylates Level 3.7 mg/dL (2.8-20.0) Salicylate Last Dose Date Unk Salicylate Last Dose Time Unk Acetaminophen Level < 2.0 mcg/ml (10-30) Acetaminophen Last Dose Date Unk Acetaminophen Last Dose Time Unk Ethyl Alcohol Level < 10 mg/dL (0-10) Glucose (Fingerstick) 61 mg/dL (70-99) Laboratory Tests Test 01/07/19 13:06 01/07/19 13:12 01/07/19 14:40 01/07/19 15:51 Urine Color Yellow Urine Clarity Clear Urine pH 5.5 Urine Specific [place] 1.025 Urine Protein 100 mg/dL (NEG-TRACE) Urine Glucose (UA) 100 mg/dL (NEG) Urine Ketones (Stick) Negative mg/dL (NEG) Urine Blood Small (NEG) Urine Nitrite Negative (NEG) Urine Bilirubin Negative (NEG) Urine Urobilinogen Dipstick 0.2 mg/dL (0.2 mg/dL) Urine Leukocyte Esterase Trace (NEG) Urine RBC 0 /HPF (0-2) Urine WBC Occ /HPF (0-4) Urine Squamous Epithelial Cells Many /LPF Urine Bacteria Few /HPF (0-FEW) Urine Opiates Screen Pos (NEG) Urine Methadone Screen Neg (NEG) Urine Barbiturates Neg (NEG) Urine Phencyclidine Screen Neg (NEG) Urine Amphetamine/Methamphetamine Pos (NEG) Urine Benzodiazepines Screen Neg (NEG) Urine Cocaine Screen Pos (NEG) Urine Cannabinoids Screen Neg (NEG) Urine Ethyl Alcohol Neg (NEG) Bedside Urine HCG, Qualitative Hcg negative (Negative) White Blood Count 19.8 x10^3/uL (4.0-11.0) Red Blood Count 4.46 x10^6/uL (3.50-5.40) Hemoglobin 13.5 g/dL (12.0-15.5) Hematocrit 41.1 % (36.0-47.0) Mean Corpuscular Volume 92 fL (79-100) Mean Corpuscular Hemoglobin 30 pg (25-35) Mean Corpuscular Hemoglobin Concent 33 g/dL (31-37) Red Cell Distribution Width 14.1 % (11.5-14.5) Platelet Count 247 x10^3/uL (140-400) Neutrophils (%) (Auto) 88 % (31-73) Lymphocytes (%) (Auto) 5 % (24-48) Monocytes (%) (Auto) 7 % (0-9) Eosinophils (%) (Auto) 0 % (0-3) Basophils (%) (Auto) 0 % (0-3) Neutrophils # (Auto) 17.5 x10^3/uL (1.8-7.7) Lymphocytes # (Auto) 0.9 x10^3/uL (1.0-4.8) Monocytes # (Auto) 1.3 x10^3/uL (0.0-1.1) Eosinophils # (Auto) 0.0 x10^3/uL (0.0-0.7) Basophils # (Auto) 0.0 x10^3/uL (0.0-0.2) Segmented Neutrophils % 79 % (35-66) Band Neutrophils % 10 % (0-9) Lymphocytes % 7 % (24-48) Monocytes % 4 % (0-10) Platelet Estimate Adequate (ADEQUATE) Prothrombin Time 12.9 SEC (11.7-14.0) Prothromb Time International Ratio 1.0 (0.8-1.1) Sodium Level 143 mmol/L (136-145) Potassium Level 4.3 mmol/L (3.5-5.1) Chloride Level 106 mmol/L (98-107) Carbon Dioxide Level 25 mmol/L (21-32) Anion Gap 12 (6-14) Blood Urea Nitrogen 16 mg/dL (7-20) Creatinine 1.0 mg/dL (0.6-1.0) Estimated GFR (Cockcroft-Gault) 81.1 Glucose Level 68 mg/dL (70-99) Calcium Level 8.8 mg/dL (8.5-10.1) Magnesium Level 2.1 mg/dL (1.8-2.4) Total Bilirubin 0.1 mg/dL (0.2-1.0) Direct Bilirubin 0.1 mg/dL (0.0-0.2) Aspartate Amino Transf (AST/SGOT) 51 U/L (15-37) Alanine Aminotransferase (ALT/SGPT) 37 U/L (14-59) Alkaline Phosphatase 61 U/L (46-116) Total Protein 7.5 g/dL (6.4-8.2) Albumin 4.0 g/dL (3.4-5.0) Salicylates Level 3.7 mg/dL (2.8-20.0) Salicylate Last Dose Date Unk Salicylate Last Dose Time Unk Acetaminophen Level < 2.0 mcg/ml (10-30) Acetaminophen Last Dose Date Unk Acetaminophen Last Dose Time Unk Ethyl Alcohol Level < 10 mg/dL (0-10) Glucose (Fingerstick) 61 mg/dL (70-99) Images Images Indication: Right hip pain TECHNIQUE: AP pelvis and 2 views of the right hip joint COMPARISON: None Findings/ impression: No acute fracture or dislocation. No arthritic changes. INDICATION: Low back pain TECHNIQUE: Multiple views of the lumbar spine COMPARISON: None FINDINGS/impression: Lumbar spine demonstrates straightening. This could be due to muscle spasm or positioning. There are 5 lumbar type vertebral bodies. No compression deformities. No imaging evidence of degenerative disc disease. INDICATION: Loss of consciousness TECHNIQUE: Single AP view of the chest COMPARISON: None FINDINGS: Heart is normal in size. Lungs are clear. No pneumothorax or pleural effusion. Visualized bony thorax within normal limits. IMPRESSION: No acute pulmonary process. Electronically signed by: Tuan Cam DO (01/07/2019 1:51 PM) [id number] Indication: Right hip pain TECHNIQUE: AP pelvis and 2 views of the right hip joint COMPARISON: None Findings/ impression: No acute fracture or dislocation. No arthritic changes. INDICATION: Low back pain TECHNIQUE: Multiple views of the lumbar spine COMPARISON: None FINDINGS/impression: Lumbar spine demonstrates straightening. This could be due to muscle spasm or positioning. There are 5 lumbar type vertebral bodies. No compression deformities. No imaging evidence of degenerative disc disease. INDICATION: Loss of consciousness TECHNIQUE: Single AP view of the chest COMPARISON: None FINDINGS: Heart is normal in size. Lungs are clear. No pneumothorax or pleural effusion. Visualized bony thorax within normal limits. IMPRESSION: No acute pulmonary process. Electronically signed by: Tuan Cam DO (01/07/2019 1:51 PM) [id number] VTE Prophylaxis Ordered VTE Prophylaxis Devices: Yes VTE Pharmacological Prophylaxi: Yes Assessment/Plan Assessment/Plan impression: POLYSUBSTANCE ABUSE with accidental overdose of cocaine fall with LOC MARKED TACHYCARDIA RIGHT HIP PAIN POST FALL Lumbar spine demonstrates straightening. This could be due to muscle spasm or positioning. There are 5 lumbar type vertebral bodies. No compression deformities. No imaging evidence of degenerative disc disease. PLAN ADMIT ICU TRUCKER UDS IV FLUID SUPPORT ALCOHOL WITHDRAWAL PROTOCOL DVT PROPHYLAXIS 37 MIN CC TIME NIKO POTTS MD Jan 07, 2019 16:46
[2019-01-07] MEDS ORDERED: PROCHLORPERAZINE 25 MG SUPP.RECT. PR PRN (17:00)
[2019-01-07] MEDS ORDERED: PROCHLORPERAZINE 10 MG/2 ML VIAL. IV PRN (17:00)
[2019-01-07] MEDS ORDERED: 0.9 % SODIUM CHLORIDE 10 ML DISP.SYRIN. IV PRN (17:00)
[2019-01-07] MEDS ORDERED: cloNIDine HCL 0.1 MG TABLET PO PRN (17:00)
[2019-01-07] MEDS ORDERED: HALOPERIDOL LACTATE 5 MG/ML VIAL. IVP PRN (17:00)
[2019-01-07] MEDS ORDERED: ONDANSETRON PF 4 MG/2 ML VIAL. IV PRN (17:00)
[2019-01-07] MEDS ORDERED: diphenhydrAMINE 50 MG/ML VIAL IVP PRN (17:00)
[2019-01-07] MEDS ORDERED: MAG HYDROX/ALUMINUM HYD/SIMETH 30 ML ORAL.SUSP PO PRN (17:00)
[2019-01-07] MEDS ORDERED: CALCIUM CARBONATE 500 MG TAB.CHEW PO PRN (17:00)
[2019-01-07] MEDS ORDERED: IBUPROFEN 400 MG TABLET. PO PRN (17:00)
[2019-01-07] MEDS ORDERED: ACETAMINOPHEN 325 MG TABLET. PO PRN (17:00)
[2019-01-07] MEDS ORDERED: MAGNESIUM HYDROXIDE 2,400 MG/30 ML ORAL.SUSP. PO PRN (17:00)
[2019-01-07] MEDS ORDERED: LORazepam 1 MG TABLET PO PRN ×2 (17:00)
[2019-01-07] MEDS: PIPERACILLIN/TAZOBACTAM 3.375 GM in IV NORMAL SALINE 50ML 50 ML IV SCH (18:18)
[2019-01-07] MEDS: MULTIVIT INFUSN,ADULT 4,VIT K 10 ML, THIAMINE INJ 100 MG, FOLIC ACID INJ 1 MG in IV NOR... IV SCH (18:19)
[2019-01-07] MEDS: IV DEXTROSE 5% 1,000 ML IV SCH (18:19)
[2019-01-07] MEDS ORDERED: NOREPINEPHRIN 8MG/250ML PREMIX 250 ML IV PRN (20:00)
[2019-01-07] MEDS: SENNOSIDES/DOCUSATE 8.6/50MG TABLET. PO SCH (21:00)
[2019-01-07] MEDS: DOCUSATE SODIUM 100 MG CAPSULE. PO SCH (21:00)
[2019-01-07] MEDS: FAMOTIDINE 20 MG TABLET. PO SCH (21:00)
--- NOTE | 2019-01-07 21:05 | NUR ---
Patient in and out of drowsy state, with acute confusion regarding situation. Patient to remain NPO at this time, until able to stay awake and orientation improves. PO night medication non-administered.
[2019-01-07] MEDS: HEPARIN for SUB-Q USE 5,000 UNIT/ML VIAL. SQ SCH (22:19)
--- NOTE | 2019-01-07 23:45 | NUR ---
Patient A&O, ST, RA, able to walk to toilet to void with no issues, VSS, no ectopy on monitor. Dr. Drake paged, updated on patient condition and vital signs. Orders received to downgrade patient to MOF. Will notify supervisor roller shop and CN.
[2019-01-08] VITALS (7 sets, daily range): BP systolic 97–122; BP diastolic 61–74
[2019-01-08] MEDS: PIPERACILLIN/TAZOBACTAM 3.375 GM in IV NORMAL SALINE 50ML 50 ML IV SCH ×4 (00:03→17:07)
[2019-01-08] MEDS: HEPARIN for SUB-Q USE 5,000 UNIT/ML VIAL. SQ SCH ×3 (06:00→21:24)
[2019-01-08] MEDS: IV DEXTROSE 5% 1,000 ML IV SCH ×2 (06:31→12:00)
[2019-01-08] MEDS: FAMOTIDINE 20 MG TABLET. PO SCH ×2 (08:03→21:23)
[2019-01-08] MEDS: SENNOSIDES/DOCUSATE 8.6/50MG TABLET. PO SCH ×2 (08:03→21:23)
[2019-01-08] MEDS: DOCUSATE SODIUM 100 MG CAPSULE. PO SCH ×2 (08:03→21:23)
[2019-01-08 08:17] LABS: BASO % 0 % (0-3); EOS # 0.3 x10^3/uL (0.0-0.7); EOS % 4 % (0-3); HEMATOCRIT 34.6 % (36.0-47.0); HEMOGLOBIN 11.3 g/dL (12.0-15.5); LYMPH # 1.8 x10^3/uL (1.0-4.8); LYMPH % 23 % (24-48); MEAN CORPUSCULAR HEMOGLOBIN 30 pg (25-35); MEAN CORPUSCULAR HGB CONC 33 g/dL (31-37); MEAN CORPUSCULAR VOLUME 92 fL (79-100); MONO # 0.6 x10^3/uL (0.0-1.1); MONO % 8 % (0-9); NEUT # 5.1 x10^3/uL (1.8-7.7); NEUT % 65 % (31-73); PLATELET COUNT 217 x10^3/uL (140-400); RED BLOOD COUNT 3.77 x10^6/uL (3.50-5.40); RED CELL DISTRIBUTION WIDTH 14.5 % (11.5-14.5); WHITE BLOOD COUNT 7.9 x10^3/uL (4.0-11.0)
[2019-01-08 08:45] LABS: ALBUMIN/GLOBULIN RATIO 1.1 (1.0-1.7); CALCIUM 8.3 mg/dL (8.5-10.1); CREATININE 0.7 mg/dL (0.6-1.0); GFR 122.4; POTASSIUM 3.7 mmol/L (3.5-5.1); TOTAL BILIRUBIN 0.3 mg/dL (0.2-1.0); TOTAL PROTEIN 5.8 g/dL (6.4-8.2)
[2019-01-08] MEDS ORDERED: THIAMINE INJ 100 MG in IV DEXTROSE 5% 50 ML IV SCH (09:00)
[2019-01-08] MEDS ORDERED: FOLIC ACID 1 MG TABLET. PO SCH (09:00)
[2019-01-08] MEDS ORDERED: MULTIVITAMIN with MINERAL TABLET. PO SCH (09:00)
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
--- NOTE | 2019-01-08 11:12 | EKG ---
[facility] [address] [place] [address] Test Date: 2019-01-07 Test Time: 12:28:30 Pat Name: BRYON HENLEY Department: Room: Gender: F Rn Mobile: : 1990 Requested By: LUCINA CHINCHILLA Order Number: [id number] Reading MD: Measurements Intervals [employer] Rate: 156 P: ME: QRS: 83 QRSD: 80 T: -33 QT: 288 QTc: 472 Interpretive Statements IRREGULAR RHYTHM, NO P-WAVE FOUND ST & T ABNORMALITY, CONSIDER INFERIOR ISCHEMIA OR LEFT VENTRICULAR STRAIN ABNORMAL ECG RI6.01 No previous ECG available for comparison
[2019-01-08] MEDS: MULTIVIT INFUSN,ADULT 4,VIT K 10 ML, THIAMINE INJ 100 MG, FOLIC ACID INJ 1 MG in IV NOR... IV SCH (17:09)
[2019-01-09 03:40] VITALS: BP 123/72
[2019-01-09] MEDS: HEPARIN for SUB-Q USE 5,000 UNIT/ML VIAL. SQ SCH (06:00)
[2019-01-09 07:00] VITALS: BP 99/63
--- NOTE | 2019-01-09 08:01 | NUR ---
Entered pts room at 0600 and patient had hand with IV site hanging over bed dripping on floor stating her IV was leaking. Swelling noted to right hand. Dr Drake called to verify need for continued IV abx, he requested IV be placed abx continued. IV start attempt made and unsuccessful. Zosyn not administered and passed onto dayshift for IV access.
[2019-01-09] MEDS: PIPERACILLIN/TAZOBACTAM 3.375 GM in IV NORMAL SALINE 50ML 50 ML IV SCH ×4 (10:30→12:00)
[2019-01-09] MEDS: FAMOTIDINE 20 MG TABLET. PO SCH (10:34)
[2019-01-09] MEDS: SENNOSIDES/DOCUSATE 8.6/50MG TABLET. PO SCH (10:34)
[2019-01-09] MEDS: DOCUSATE SODIUM 100 MG CAPSULE. PO SCH (10:35)
[2019-01-09 11:00] VITALS: BP 102/68
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
--- NOTE | 2019-01-09 12:47 | NUR ---
AIRCRAFT LOADMASTER SUPERINTENDENT informed this nurse that patient was requesting to leave AMA. This nurse and SW visited patient and explained risks of leaving prematurely to completing treatment, especially IV antibiotics. Also explained the risks of infection getting worse. The patient stated she still wished to leave AMA. This nurse informed Dr. Drake and RN Sales Account Representative of patient's wishes. This nurse and security escorted patient to ER entrance to meet her ride.
== END 2019-01-09 12:06 | disposition left against medical advice (07) | DRG 918 ==
LOC: ER 12:16 → 1 WEST ICU 15:05 → 4 NORTH 01-08 00:15
PROVIDERS: ADMIT Family Medicine; ATTEND Family Medicine
DX: T40.5X1A Poisoning by cocaine, accidental (unintentional), initial encounter (principal); E11.649 Type 2 diabetes mellitus with hypoglycemia without coma; F14.10 Cocaine abuse, uncomplicated; F15.10 Other stimulant abuse, uncomplicated; F17.210 Nicotine dependence, cigarettes, uncomplicated; M25.551 Pain in right hip; W18.30XA Fall on same level, unspecified, initial encounter; R00.0 Tachycardia, unspecified; Z53.21 Procedure and treatment not carried out due to patient leaving prior to being seen by health care provider; Z82.49 Family history of ischemic heart disease and other diseases of the circulatory system; Z91.19 Patient's noncompliance with other medical treatment and regimen; Y93.89 Activity, other specified; Y92.89 Other specified places as the place of occurrence of the external cause; Y99.8 Other external cause status
CPT/HCPCS: 36415; 71045; 72100; 73502; 80048; 80053; 80076; 80307; 80329; 81001; 81025; 82962; 83735; 84484; 85007; 85025; 85610; 87040; 87086; 93005; 96361; 96374; 99292; G0480; J1644; J2060; J2543; J7030; 99291-25; G0378

== ENCOUNTER 2019-06-23 14:38 | Emergency (ER) | payer SELFPAY ==
[~2019-06-23] VITALS: Ht 160 cm; Wt 68.1 kg
--- NOTE | 2019-06-23 15:10 | PHYS DOC ---
Past Medical History Past Medical History: Ectopic , Other Additional Past Medical Histor: HEADACHES, 01/21 [employer]OR HISTORIAN (JOSLYN LOBATO APRN) Past Surgical History: No Surgical History (JOSLYN LOBATO APRN) Smoking Status: Current Every Day Smoker Alcohol Use: Occasionally Drug Use: None (JOSLYN LOBATO APRN) Adult General Chief Complaint Chief Complaint: VAGINAL BLEEDING [facility] Patient is a 29 year old female who presents with vaginal bleeding and something bulging out of her vagina after an on Wednesday. The patient had at [facility] on Wednesday of last week and states has been bleeding ever since then. The patient states when she bears down she can feel something coming out of her vagina. Denies any other complaints. Complete ROS were reviewed and found to be within normal limits, except as documented in the HPI (JOSLYN LOBATO APRN) Allergies Allergies Allergies Coded Allergies Type Severity Reaction Last Updated Verified No Known Drug Allergies 11/19/15 No (RIMA PRATHER MD) Physical Exam Physical Exam Constitutional: Well developed, well nourished, no acute distress, non-toxic appearance. [] HENT: Normocephalic, atraumatic, bilateral external ears normal, oropharynx moist, no oral exudates, nose normal. [] Cardiovascular:Heart rate regular rhythm, no murmur [] Lungs & Thorax: Bilateral breath sounds clear to auscultation [] Neurologic: Alert and oriented X 3, normal motor function, normal sensory function, no focal deficits noted. [] Psychologic: Affect normal, judgement normal, mood normal. [] Pelvic Exam: External exam is normal and without rash, uterine prolapse noted. (JOSLYN LOBATO APRN) Current Patient Data Vital Signs Vital Signs Date Time Temp Pulse Resp B/P (MAP) Pulse Ox O2 Delivery O2 Flow Rate FiO2 06/23/19 15:25 98.2 80 16 117/73 (88) 98 Room Air 98.2 (RIMA PRATHER MD) Lab Values Laboratory Tests Test 06/23/19 15:19 06/23/19 15:50 White Blood Count 7.8 x10^3/uL (4.0-11.0) Red Blood Count 4.20 x10^6/uL (3.50-5.40) Hemoglobin 12.6 g/dL (12.0-15.5) Hematocrit 37.6 % (36.0-47.0) Mean Corpuscular Volume 90 fL (79-100) Mean Corpuscular Hemoglobin 30 pg (25-35) Mean Corpuscular Hemoglobin Concent 34 g/dL (31-37) Red Cell Distribution Width 13.1 % (11.5-14.5) Platelet Count 259 x10^3/uL (140-400) Neutrophils (%) (Auto) 58 % (31-73) Lymphocytes (%) (Auto) 27 % (24-48) Monocytes (%) (Auto) 9 % (0-9) Eosinophils (%) (Auto) 6 % (0-3) H Basophils (%) (Auto) 1 % (0-3) Neutrophils # (Auto) 4.5 x10^3/uL (1.8-7.7) Lymphocytes # (Auto) 2.1 x10^3/uL (1.0-4.8) Monocytes # (Auto) 0.7 x10^3/uL (0.0-1.1) Eosinophils # (Auto) 0.5 x10^3/uL (0.0-0.7) Basophils # (Auto) 0.1 x10^3/uL (0.0-0.2) Maternal Serum HCG Beta Subunit 12 mIU/mL (0-5) H Sodium Level 141 mmol/L (136-145) Potassium Level 3.5 mmol/L (3.5-5.1) Chloride Level 105 mmol/L (98-107) Carbon Dioxide Level 30 mmol/L (21-32) Anion Gap 6 (6-14) Blood Urea Nitrogen 10 mg/dL (7-20) Creatinine 0.7 mg/dL (0.6-1.0) Estimated GFR (Cockcroft-Gault) 121.5 BUN/Creatinine Ratio 14 (6-20) Glucose Level 97 mg/dL (70-99) Calcium Level 9.0 mg/dL (8.5-10.1) Total Bilirubin 0.2 mg/dL (0.2-1.0) Aspartate Amino Transferase (AST) 21 U/L (15-37) Alanine Aminotransferase (ALT) 27 U/L (14-59) Alkaline Phosphatase 71 U/L (46-116) Total Protein 6.9 g/dL (6.4-8.2) Albumin 3.5 g/dL (3.4-5.0) Albumin/Globulin Ratio 1.0 (1.0-1.7) Urine Collection Type Unknown Urine Color Yellow Urine Clarity Clear Urine pH 6.0 (<5.0-8.0) Urine Specific [place] 1.025 (1.000-1.030) Urine Protein Negative mg/dL (NEG-TRACE) Urine Glucose (UA) Negative mg/dL (NEG) Urine Ketones (Stick) Negative mg/dL (NEG) Urine Blood Large (NEG) Urine Nitrite Negative (NEG) Urine Bilirubin Negative (NEG) Urine Urobilinogen Dipstick 0.2 mg/dL (0.2 mg/dL) Urine Leukocyte Esterase Small (NEG) Urine RBC 6-10 /HPF (0-2) Urine WBC 5-10 /HPF (0-4) Urine Squamous Epithelial Cells Mod /LPF Urine Bacteria Few /HPF (0-FEW) Urine Mucus Marked /LPF Laboratory Tests 06/23/19 15:19 Laboratory Tests 06/23/19 15:19 (RIMA PRATHER MD) Lab Values Laboratory Tests Test 06/23/19 15:19 06/23/19 15:50 White Blood Count 7.8 x10^3/uL (4.0-11.0) Red Blood Count 4.20 x10^6/uL (3.50-5.40) Hemoglobin 12.6 g/dL (12.0-15.5) Hematocrit 37.6 % (36.0-47.0) Mean Corpuscular Volume 90 fL (79-100) Mean Corpuscular Hemoglobin 30 pg (25-35) Mean Corpuscular Hemoglobin Concent 34 g/dL (31-37) Red Cell Distribution Width 13.1 % (11.5-14.5) Platelet Count 259 x10^3/uL (140-400) Neutrophils (%) (Auto) 58 % (31-73) Lymphocytes (%) (Auto) 27 % (24-48) Monocytes (%) (Auto) 9 % (0-9) Eosinophils (%) (Auto) 6 % (0-3) H Basophils (%) (Auto) 1 % (0-3) Neutrophils # (Auto) 4.5 x10^3/uL (1.8-7.7) Lymphocytes # (Auto) 2.1 x10^3/uL (1.0-4.8) Monocytes # (Auto) 0.7 x10^3/uL (0.0-1.1) Eosinophils # (Auto) 0.5 x10^3/uL (0.0-0.7) Basophils # (Auto) 0.1 x10^3/uL (0.0-0.2) Maternal Serum HCG Beta Subunit 12 mIU/mL (0-5) H Sodium Level 141 mmol/L (136-145) Potassium Level 3.5 mmol/L (3.5-5.1) Chloride Level 105 mmol/L (98-107) Carbon Dioxide Level 30 mmol/L (21-32) Anion Gap 6 (6-14) Blood Urea Nitrogen 10 mg/dL (7-20) Creatinine 0.7 mg/dL (0.6-1.0) Estimated GFR (Cockcroft-Gault) 121.5 BUN/Creatinine Ratio 14 (6-20) Glucose Level 97 mg/dL (70-99) Calcium Level 9.0 mg/dL (8.5-10.1) Total Bilirubin 0.2 mg/dL (0.2-1.0) Aspartate Amino Transferase (AST) 21 U/L (15-37) Alanine Aminotransferase (ALT) 27 U/L (14-59) Alkaline Phosphatase 71 U/L (46-116) Total Protein 6.9 g/dL (6.4-8.2) Albumin 3.5 g/dL (3.4-5.0) Albumin/Globulin Ratio 1.0 (1.0-1.7) Urine Collection Type Unknown Urine Color Yellow Urine Clarity Clear Urine pH 6.0 (<5.0-8.0) Urine Specific [place] 1.025 (1.000-1.030) Urine Protein Negative mg/dL (NEG-TRACE) Urine Glucose (UA) Negative mg/dL (NEG) Urine Ketones (Stick) Negative mg/dL (NEG) Urine Blood Large (NEG) Urine Nitrite Negative (NEG) Urine Bilirubin Negative (NEG) Urine Urobilinogen Dipstick 0.2 mg/dL (0.2 mg/dL) Urine Leukocyte Esterase Small (NEG) Urine RBC 6-10 /HPF (0-2) Urine WBC 5-10 /HPF (0-4) Urine Squamous Epithelial Cells Mod /LPF Urine Bacteria Few /HPF (0-FEW) Urine Mucus Marked /LPF Laboratory Tests 06/23/19 15:19 Laboratory Tests 06/23/19 15:19 (JOSLYN LOBATO APRN) EKG EKG [] (JOSLYN LOBATO APRN) Radiology/Procedures Radiology/Procedures [][facility] [address] [place] [address] IMAGING REPORT Signed PATIENT: BRYON HENLEY ACCOUNT: [id number] : 1990 LOCATION: ER AGE: 29 SEX: F EXAM STATUS: PRE ER ORD. PHYSICIAN: JOSLYN LOBATO APRN REASON: Vaginal bleeding post ;"something coming out of vagina"per pt PROCEDURE: PELVIS ULTRASOUND INDICATION: Vaginal bleeding post procedure COMPARISON: None. TECHNIQUE: Grayscale and color ultrasound images uterus and adnexa. FINDINGS: Uterus: 103 x 78 x 59 mm. Endometrial Stripe: 26 mm. The bilateral ovaries are obscured by bowel gas IMPRESSION: * Thickening of the endometrial stripe is identified. Differential consideration includes retained products as well as hematoma within the endometrial stripe given the patient's recent procedure. Endometrial hyperplasia or polyp could also have a similar appearance and follow-up could be obtained to ensure that there is appropriate thickening of the endometrial stripe. Electronically signed by: Kiley Marie MD (06/23/2019 4:03 PM) [id number] DICTATED and SIGNED BY: KILEY MARIE MD DATE: 06/23/191602 (JOSLYN LOBATO APRN) Course & Med Decision Making Course & Med Decision Making Pertinent Labs and Imaging studies reviewed. (See chart for details) We will obtain an ultrasound, labs, urine. The patient has a uterine prolapse and will have her referred to PRODUCE CLERK. Patient's urine also has leukocytes. Will place the patient on Keflex. The patient has retained products on ultrasound will page PRODUCE CLERK and also discussed the uterine prolapse with him. At 1 hour and 45 minutes into the patient's visit went to the patient's room to discuss results. Nurse stated that patient had just left stating that her Uber were gotten there and she is ready to go. Was unable to discuss findings with the patient as patient eloped before findings could be discussed. Nurse states patient was advised of the risk of leaving without full results. (JOSLYN LOBATO APRN) Course & Med Decision Making Staff Physician Addendum: I was working in the ER during the course of this patient's visit. I was available for consultation as needed, but I was not directly involved in the care of this patient. (RIMA PRATHER MD) Dragon Disclaimer Dragon Disclaimer This electronic medical record was generated, in whole or in part, using a voice recognition dictation system. (JOSLYN LOBATO APRN) Departure Departure Impression: Primary Impression: Uterine prolapse Additional Impressions: Retained products of conception following Eloped from emergency department Disposition: 07 AGAINST MEDICAL ADVICE Condition: STABLE Referrals: NO PCP (PCP) Problem Qualifiers JOSLYN LOBATO APRN Jun 23, 2019 15:10 RIMA PRATHER MD Jun 23, 2019 16:36
[2019-06-23 15:25] VITALS: BP 117/73
[2019-06-23 15:30] LABS: BASO # 0.1 x10^3/uL (0.0-0.2); BASO % 1 % (0-3); EOS # 0.5 x10^3/uL (0.0-0.7); EOS % 6 % (0-3); HEMATOCRIT 37.6 % (36.0-47.0); HEMOGLOBIN 12.6 g/dL (12.0-15.5); LYMPH # 2.1 x10^3/uL (1.0-4.8); LYMPH % 27 % (24-48); MEAN CORPUSCULAR HEMOGLOBIN 30 pg (25-35); MEAN CORPUSCULAR HGB CONC 34 g/dL (31-37); MEAN CORPUSCULAR VOLUME 90 fL (79-100); MONO # 0.7 x10^3/uL (0.0-1.1); MONO % 9 % (0-9); NEUT # 4.5 x10^3/uL (1.8-7.7); NEUT % 58 % (31-73); PLATELET COUNT 259 x10^3/uL (140-400); RED CELL DISTRIBUTION WIDTH 13.1 % (11.5-14.5); WHITE BLOOD COUNT 7.8 x10^3/uL (4.0-11.0)
[2019-06-23 15:35] LABS: CREATININE 0.7 mg/dL (0.6-1.0); GFR 121.5; POTASSIUM 3.5 mmol/L (3.5-5.1)
[2019-06-23 15:41] LABS: ALBUMIN 3.5 g/dL (3.4-5.0); TOTAL BILIRUBIN 0.2 mg/dL (0.2-1.0); TOTAL PROTEIN 6.9 g/dL (6.4-8.2)
[2019-06-23 15:57] LABS: BILIRUBIN,URINE NEGATIVE (NEG); CLARITY,URINE CLEAR; COLOR,URINE YELLOW; NITRITE,URINE NEGATIVE (NEG); PROTEIN,URINE NEGATIVE (NEG-TRACE); UROBILINOGEN,URINE 0.2 mg/dL (0.2 mg/dL)
[2019-06-23 16:04] LABS: BACTERIA,URINE FEW /HPF (0-FEW); SQUAMOUS EPITHELIAL CELL,UR MOD /LPF
--- NOTE | 2019-06-23 16:06 | RAD ---
INDICATION: Vaginal bleeding post procedure COMPARISON: None. TECHNIQUE: Grayscale and color ultrasound images uterus and adnexa. FINDINGS: Uterus: 103 x 78 x 59 mm. Endometrial Stripe: 26 mm. The bilateral ovaries are obscured by bowel gas IMPRESSION: * Thickening of the endometrial stripe is identified. Differential consideration includes retained products as well as hematoma within the endometrial stripe given the patient's recent procedure. Endometrial hyperplasia or polyp could also have a similar appearance and follow-up could be obtained to ensure that there is appropriate thickening of the endometrial stripe. Electronically signed by: Vinny Torres MD (06/23/2019 4:03 PM) [id number]
== END 2019-06-23 16:26 | disposition left against medical advice (07) ==
LOC: ER 14:38
DX: O03.4 Incomplete spontaneous abortion without complication (principal); N81.4 Uterovaginal prolapse, unspecified; F17.200 Nicotine dependence, unspecified, uncomplicated
CPT/HCPCS: 36415; 76856; 80053; 81001; 84702; 85025; 87086; 99284